=== PATIENT | male | born 1965 | race Caucasian/White ===

== ENCOUNTER → 2017-02-16 | Outpatient (CLI) | payer MEDICARE ==
[~2017-02-16] MED LIST: AMLO2.5T PO; FERR325T20 PO; FOLI-17 PO; HYDR12.58 PO; LISI-170 PO; MAGN400T7 PO; MULT-6 PO; PANT40TA3 PO; RIFA550T PO; SIMV5TAB5 PO; THIA100T10 PO
== END | disposition home or self-care (01) ==
LOC: CFH 10:47
PROVIDERS: ATTEND Nurse Practitioner Primary Care
DX: R10.84 Generalized abdominal pain (principal); E78.2 Mixed hyperlipidemia; I10 Essential (primary) hypertension; E55.9 Vitamin D deficiency, unspecified; K21.9 Gastro-esophageal reflux disease without esophagitis; F10.129 Alcohol abuse with intoxication, unspecified; Z72.0 Tobacco use
CPT/HCPCS: 76700